=== PATIENT | male | born 1980 | race Caucasian/White ===

== ENCOUNTER 2022-07-06 07:37 | Emergency (ER) | payer SELFPAY | END 2022-07-06 09:08 | disposition home or self-care (01) | LOC: FER 07:37 | DX: S61.411A Laceration without foreign body of right hand, initial encounter (principal); F17.210 Nicotine dependence, cigarettes, uncomplicated; Z23 Encounter for immunization; Z20.822 Contact with and (suspected) exposure to COVID-19; W45.8XXA Other foreign body or object entering through skin, initial encounter | CPT/HCPCS: 90471; 90715; 99282 ==